=== PATIENT | male | born 1950 | race Caucasian/White ===

== ENCOUNTER 2016-06-02 10:23 | Inpatient (IN) | payer MEDICARE ==
[2016-05-28 12:01] LABS: HEMATOCRIT 45.7 % (40.0-51.0); HEMOGLOBIN 15.6 g/dL (13.6-17.8)
[2016-05-28 12:30] LABS: BUN (BLOOD UREA NITROGEN) 10 MG/DL (6-23); CALCIUM, SERUM 8.8 MG/DL (8.5-10.4); CHLORIDE, SERUM 104 MMOL/L (96-112); CO2 (CARBON DIOXIDE) 27 MMOL/L (24-34); CREATININE 0.61 MG/DL (0.70-1.30); GFR AFRICAN AMERICAN 121 ML/MIN (>=60); GFR NON AFRICAN AMERICAN 105 ML/MIN (>=60); GLUCOSE, SERUM 94 MG/DL (60-99); POTASSIUM, SERUM 4.4 MMOL/L (3.5-5.3); SODIUM, SERUM 141 MMOL/L (135-148)
--- NOTE | ~2016-06-02 | OP ---
Record Of Operation [facility] [address] [place]. [address] NAME: KAYLEE VELÁSQUEZ : 50 STATUS : ADM IN PAT#: [id number] AGE: 65 ADM/REG DATE : 06/02/16 MR#: [id number] REPORT SERV DATE: 06/04/16 DICTATED BY: PABLO CURRY DATE: 06/03/16 REPORT STATUS : Draft TRANSCRIBED BY: MODL DATE: 06/03/16 DATE OF PROCEDURE: 06/02/2016 PREOPERATIVE DIAGNOSIS: Right-sided colon cancer. POSTOPERATIVE DIAGNOSIS: Right-sided colon cancer. PROCEDURE PERFORMED: Open right hemicolectomy with primary stapled ileocolic [id number]-ur-[id number] functional end-to-end anastomosis. SURGEON: Sofiya Curry M.D. FELLOW: Jorge Hastings M.D. ANESTHESIA: 1. General anesthesia. 2. TAP blocks. IV FLUIDS: 1600 mL. ESTIMATED BLOOD LOSS: 130. DRAINS: None. SPECIMENS: Terminal ilium and right colon. COMPLICATIONS: None. INDICATIONS FOR PROCEDURE: This is a 65-year-old male, who was found to have large right- sided colon cancer and was offered open right colectomy due to its size. Risks, benefits and alternatives, including bleeding, infection, scarring, damage to surrounding structures, cardiac risks, risk for blood clots, risk for future hernias, as well as anesthesia risks were explained to the patient who understood these and consented to undergo right colectomy. DESCRIPTION OF PROCEDURE: The patient was brought to the operating room, placed in the supine position where general anesthesia was induced. Bajwa catheter was placed sterilely. The patient's abdomen was prepped and draped in sterile fashion. A preprocedure time-out was called and agreed upon. Appropriate preoperative antibiotics were administered within 30 minutes of the incision. Incision was made through the patient's existing midline scar from prior surgery and extended superiorly to allow adequate visualization. The fascia was grasped and opened sharply. Abdominal contents were protected and the remainder of the fascia along the incision was opened using electrocautery. Survey of the abdomen did not reveal any peritoneal or omental implants, and there was no visual or palpable evidence of metastatic liver disease. Bookwalter retractor was placed. The mass was firm and large in the right lower quadrant in the proximal ascending colon. This was fixed to the abdominal side wall and due to concern for margins, a portion of the sidewall was taken with the Record Of Operation [place] [id number] [facility] [place]. [address] NAME: KAYLEE VELÁSQUEZ : 50 STATUS : ADM IN PAT#: [id number] AGE: 65 ADM/REG DATE : 06/02/16 MR#: [id number] REPORT SERV DATE: 06/04/16 DICTATED BY: PABLO CURRY DATE: 06/03/16 REPORT STATUS : Draft TRANSCRIBED BY: MODDeon DATE: 06/03/16 specimen. 1 cm margin around its fixation area was incised using electrocautery and this portion of the sidewall was removed and retracted medially. We then mobilized the right colon along the white line of Toldt using electrocautery up to the hepatic flexure. The hepatic flexure was taken down using a combination of electrocautery and bnggy-ijx-qcq technique. We then mobilized the base of the small bowel mesentery using electrocautery, and adequate visualization of the duodenum was achieved. The duodenum was swept posteriorly gently with no injury. Once we had adequate mobilization of the right colon mesentery, we elected to divide the colon at its margins. Proximal and distal margins of 10 cm were measured and the terminal ilium was divided roughly 5 cm from the ileocecal valve. The distal margin was 10 cm as well. We then performed a high ligation of the ileocolic vessels as well as the entire right colon mesentery using a sjpjf-taa-jyb technique. Hemostasis was adequate. Upon reaching the ileocolic vessel, 0 Vicryl ties were used sequentially. The remainder of the mesocolon was taken using 2-0 silk ties in kivaw-xei-rof technique. The specimen was passed off the field to the pathologist who confirmed negative margins on frozen specimen. We then irrigated the abdomen with sterile water and ensured that we had adequate hemostasis. We then performed a standard ileocolic anastomosis in qttq-oa-mulz functional end-to-end fashion using two fires of the 75 mm blue load a ANGELINA stapler. Again, we inspected the abdomen for adequate hemostasis. We then closed the abdomen using 0 PDS suture in continuous running fashion. Skin was closed intermittently with a stapler and the intervening spaces were packed with sterile gauze. The patient tolerated the procedure well, was transferred to the PACU for routine care. Needle, lap, and instrument counts were correct, and Dr. Curry was scrubbed and present for the duration of the procedure. DICTATED BY: MD ROSS De Paz/JADEN Sofiya Curry M.D. / [id number] CC: Bryson WakefieldEast [place]
--- NOTE | ~2016-06-02 | DS ---
Discharge Summary [facility] [address] [place]. [address] NAME: KAYLEE VELÁSQUEZ : 50 STATUS : DIS IN PAT#: [id number] AGE: 65 ADM/REG DATE : 06/02/16 MR#: [id number] REPORT SERV DATE: 06/19/16 DICTATED BY: PABLO CURRY DATE: 06/18/16 REPORT STATUS : Draft TRANSCRIBED BY: MODL DATE: 06/18/16 Data Collection from hospitalization DISCHARGE DIAGNOSIS(ES): 1. Colon mass. 2. Borderline hypertension. CONSULTATIONS: None. PROCEDURES PERFORMED: Open right hemicolectomy with primary stapled ileocolic fhhl-ql-qjll functional end-to-end anastomosis. 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 MEDICATIONS: Tylenol 1000 mg every six hours as needed, MiraLAX powder one packet twice daily as needed, hold for loose bowel movements; Verelan 1-1/2 tablets every morning; and oxycodone 5/325 one every four hours as needed. CONDITION AT DISCHARGE: Upon discharge, he did appear to be doing well and had no complaints. DISPOSITION: He had been discharged home to continue a regular diet with activity as discussed. He was to follow up with me in the office on 06/18/2016. HOSPITAL COURSE: This 65-year-old male was found to have a large right-sided colon cancer and was offered an open right colectomy due to its size. The risks and benefits and alternatives to include bleeding, infection, scarring, damage to surrounding structures, cardiac risk, risk for blood clots, risk for future hernias as well as an anesthesia risk were explained to the patient, who understood these and consented to undergo right colectomy. He was admitted for this and further treatment. Upon admission to the hospital, he had been taken to the operating room where he did undergo the above procedure. He tolerated this well and was transferred to the recovery room. On postop day #1, he had no acute events noted. He was afebrile, and his vital signs were stable. His WBCs were noted to be at 13.7. He did have an adequate urinary output. On postop day #2, he did continue to do well and had no new complaints. His abdomen was uncomfortable when coughing. His diet was being slowly advanced. He had also been placed on MiraLAX. On postop day #3, he did continue to do well and was continued on his current medications. On postop day #4, he did remain in stable condition and was tolerating oral intake without difficulty. He did remain in stable condition and was then discharged with the above instructions. Information collected by: Usman Wang. I submit the above information as my discharge summary. RW/MODL Sofiya Curry M.D. Discharge Summary [address] [address] NAME: KAYLEE VELÁSQUEZ : 50 STATUS : DIS IN PAT#: [id number] AGE: 65 ADM/REG DATE : 06/02/16 MR#: [id number] REPORT SERV DATE: 06/19/16 DICTATED BY: PABLO CURRY DATE: 06/18/16 REPORT STATUS : Draft TRANSCRIBED BY: MODL DATE: 06/18/16 / [id number] CC: Bryson Wakefield M.D.
[~2016-06-02 10:23] MED LIST: ASABAYER PO; VERELAN240 MG PO
[2016-06-03 07:16] LABS: BASOPHILS 0.1 %; BASOPHILS ABSOLUTE 0.01 10/3/uL (0.0-0.16); EOSINOPHILS 0 %; HEMOGLOBIN 14.7 g/dL (13.6-17.8); IMMATURE GRANULOCYTES 0.2 %; IMMATURE GRANULOCYTES ABSOLUTE 0.03 10/3/uL (0.0-0.11); LYMPHOCYTES 6.7 %; LYMPHOCYTES ABSOLUTE 0.92 10/3/uL (0.67-4.30); MEAN CORPUS HGB CONC 33.4 g/dL (32.0-36.0); MEAN CORPUSCULAR VOLUME 89.8 fL (80-100); MEAN PLATELET VOLUME 9.9 fL (9.2-13.0); MONOCYTES ABSOLUTE 0.96 10/3/uL (0.21-1.20); NEUTROPHILS ABSOLUTE 11.82 10/3/uL (2.02-8.40); PLATELET COUNT 299 10/3/uL (150-400); RBC DISTRIBUTION WIDTH 15.4 % (12.0-16.0); WHITE BLOOD CELLS 13.7 10/3/uL (4.5-10.5)
[2016-06-03 07:22] LABS: MANUAL DIFF NO %
[2016-06-03 07:28] LABS: BUN (BLOOD UREA NITROGEN) 9 MG/DL (6-23); CALCIUM, SERUM 8.3 MG/DL (8.5-10.4); CHLORIDE, SERUM 104 MMOL/L (96-112); CO2 (CARBON DIOXIDE) 28 MMOL/L (24-34); CREATININE 0.71 MG/DL (0.70-1.30); GFR AFRICAN AMERICAN 114 ML/MIN (>=60); GFR NON AFRICAN AMERICAN 98 ML/MIN (>=60); POTASSIUM, SERUM 4.7 MMOL/L (3.5-5.3); SODIUM, SERUM 140 MMOL/L (135-148)
[2016-06-03 07:29] LABS: GLUCOSE, SERUM 179 MG/DL (60-99)
[2016-06-05] MEDS ORDERED: PCET PO (12:03)
[2016-06-06] MEDS ORDERED: MIRALAX POWDER1 PKT PO (13:28)
== END 2016-06-06 13:57 | disposition home or self-care (01) | DRG 330 ==
LOC: SDC/OF 10:23 → 5SO 17:55
PROVIDERS: Colon & Rectal Surgery
PROC: 3E0T3CZ (ICD-10-PCS; 2016-06-02)
PROC: 0DTF0ZZ Resection of Right Large Intestine, Open Approach (ICD-10-PCS; principal; 2016-06-02 12:45)
DX: C18.2 Malignant neoplasm of ascending colon (principal); C77.2 Secondary and unspecified malignant neoplasm of intra-abdominal lymph nodes; F17.210 Nicotine dependence, cigarettes, uncomplicated; Z80.8 Family history of malignant neoplasm of other organs or systems
CPT/HCPCS: 80048; 85014; 85018; 85025; 88309; 88341; 88342; 93005; A9270-GY; J0690; J2250; J2370; J2405; J2710; J2795; J3010

== ENCOUNTER 2016-07-03 11:06 | Day surgery (SDC) | payer MEDICARE ==
[2016-07-02 11:55] LABS: BASOPHILS 0.1 %; BASOPHILS ABSOLUTE 0.01 10/3/uL (0.0-0.16); EOSINOPHILS 0.5 %; EOSINOPHILS ABSOLUTE 0.04 10/3/uL (0.0-0.53); HEMATOCRIT 45.1 % (40.0-51.0); HEMOGLOBIN 15.4 g/dL (13.6-17.8); IMMATURE GRANULOCYTES 0.2 %; IMMATURE GRANULOCYTES ABSOLUTE 0.02 10/3/uL (0.0-0.11); LYMPHOCYTES 16.2 %; LYMPHOCYTES ABSOLUTE 1.35 10/3/uL (0.67-4.30); MEAN CORPUS HGB CONC 34.1 g/dL (32.0-36.0); MEAN CORPUSCULAR HEMOGLOB 30.9 pg (26.0-34.0); MEAN CORPUSCULAR VOLUME 90.6 fL (80-100); MEAN PLATELET VOLUME 9.7 fL (9.2-13.0); MONOCYTES 6.3 %; MONOCYTES ABSOLUTE 0.52 10/3/uL (0.21-1.20); NEUTROPHILS 76.7 %; NEUTROPHILS ABSOLUTE 6.37 10/3/uL (2.02-8.40); PLATELET COUNT 260 10/3/uL (150-400); RBC DISTRIBUTION WIDTH 15.8 % (12.0-16.0); RED CELL COUNT 4.98 10/6/uL (4.7-6.1); WHITE BLOOD CELLS 8.3 10/3/uL (4.5-10.5)
[2016-07-02 11:56] LABS: MANUAL DIFF NO %
[2016-07-02 12:06] LABS: BUN (BLOOD UREA NITROGEN) 9 MG/DL (6-23); CALCIUM, SERUM 8.8 MG/DL (8.5-10.4); CHLORIDE, SERUM 105 MMOL/L (96-112); CO2 (CARBON DIOXIDE) 30 MMOL/L (24-34); CREATININE 0.69 MG/DL (0.70-1.30); GFR AFRICAN AMERICAN 115 ML/MIN (>=60); GFR NON AFRICAN AMERICAN 100 ML/MIN (>=60); GLUCOSE, SERUM 125 MG/DL (60-99); POTASSIUM, SERUM 4.7 MMOL/L (3.5-5.3); SODIUM, SERUM 139 MMOL/L (135-148)
--- NOTE | ~2016-07-03 | OP ---
Record Of Operation [facility] [address] [place]. [address] NAME: KAYLEE VELÁSQUEZ : 50 STATUS : [facility]#: [id number] AGE: 65 ADM/REG DATE : 07/03/16 MR#: [id number] REPORT SERV DATE: 07/03/16 DICTATED BY: PABLO CURRY DATE: 07/03/16 REPORT STATUS : Draft TRANSCRIBED BY: MODL DATE: 07/03/16 DATE OF PROCEDURE: 07/03/2016 PREOPERATIVE DIAGNOSIS: Advanced colon cancer, need for IV access. POSTOPERATIVE DIAGNOSIS: Advanced colon cancer, need for IV access. PROCEDURE: Left IJ brandie catheter placement. SURGEON: Sofiya Curry M.D. ANESTHESIA: General. INDICATION: Mr. Velásquez is a 65-year-old male, who had presented with advanced colon cancer, need for IV access for chemotherapy. The risks of port placement including bleeding, infection, DVT, anesthetic were discussed with him and he agreed to proceed. DESCRIPTION OF PROCEDURE: The patient was taken to the operating room and placed in supine position. General anesthesia was induced. The left subclavian and neck area were prepped and draped. Incision was made and dissected down to the deltopectoral groove where a small vein was identified and isolated and attempt was made to place a catheter into the vein, but it was too small and therefore this approach was abandoned and an ultrasound guidance was utilized to access the left internal jugular vein and the wire was then passed down into the superior vena cava under fluoroscopic guidance and then the catheter was tunneled from the subclavian incision site to the neck site and a dilator and sheath were placed over the wire under fluoroscopic guidance and then the wire and dilator were removed and the catheter was advanced to the superior vena cava under fluoroscopic guidance and the sheath was removed. The catheter was then cut to length and the port placed with appropriate attachment device and it was placed in the pocket, which was developed in the inferior aspect of the incision. There was good blood return and the catheter was flushed with heparinized saline after it had been sutured into position with 3-0 Vicryl in the pocket. The subcutaneous and subcuticular closures were performed with 3-0 Vicryl. Dressing was applied. He tolerated the procedure well. TOMA/JADEN Sofiya Curry M.D. / [id number]
[~2016-07-03 11:06] MED LIST changes: +MIRALAX POWDER1 PKT PO; +PCET PO
== END 2016-07-03 17:59 | disposition home or self-care (01) ==
LOC: SDC 11:06
PROVIDERS: Colon & Rectal Surgery
PROC: 05HN33Z Insertion of Infusion Device into Left Internal Jugular Vein, Percutaneous Approach (ICD-10-PCS; 2016-07-03)
PROC: B514YZA Fluoroscopy of Left Jugular Veins using Other Contrast, Guidance (ICD-10-PCS; 2016-07-03)
PROC: B544ZZA Ultrasonography of Left Jugular Veins, Guidance (ICD-10-PCS; 2016-07-03)
PROC: 0JH60XZ Insertion of Tunneled Vascular Access Device into Chest Subcutaneous Tissue and Fascia, Open Approach (ICD-10-PCS; principal; 2016-07-03 12:45)
DX: C18.2 Malignant neoplasm of ascending colon (principal); R03.0 Elevated blood-pressure reading, without diagnosis of hypertension; F17.210 Nicotine dependence, cigarettes, uncomplicated; Z85.46 Personal history of malignant neoplasm of prostate; Z90.49 Acquired absence of other specified parts of digestive tract; Z98.890 Other specified postprocedural states; Z88.0 Allergy status to penicillin; Z79.899 Other long term (current) drug therapy; Z90.89 Acquired absence of other organs; Z87.442 Personal history of urinary calculi
CPT/HCPCS: 71010; 76000; 77001; 80048; 85025; 93005; C1751; J0330; J0690; J2250; J2405; J3010; Q9967